=== PATIENT | male | born 1950 | race Caucasian/White ===

== ENCOUNTER 2025-08-30 08:43 | Day surgery (SDC) | payer OTHER ==
[~2025-08-30] VITALS: Ht 185.4 cm; Wt 72.1 kg
[~2025-08-30 08:43] MED LIST: AMOCLA875 PO; ASCO500 PO; ATOR20 PO; Balanced Salt Epinephrine Irrigation Solution 500 mL IR SCH; FISH1000 PO; GARLIQUE5000 MCG PO; INDAPAMIDE; K-Dur10 MEQ PO; LOSHYD PO; MULVITMINF PO; Moxifloxacin HCL 0.5 MG/0.1 ML 0.4MLSYR RIGHTEYE SCH; NIAC500 PO; NS 500 ML IV ONE; Ondansetron 4 MG SoluTab MM PRN; PHENYLEPHRINE\\TROPICAMIDE\\TETRACAINE OPHTHALMIC DILATING SOLN RIGHTEYE PRN; POTA10T PO; PROP10 PO; Povidone-Iodine 450 DROP/30 ML Solution ONE; Povidone-Iodine 450 DROP/30 ML Solution RIGHTEYE SCH; Tetracaine HCl/Pf 0.5% Opth Soln 4 ml ONE; VALS80 PO; diazePAM 5 MG,diazePAM 2 MG PO SCH
[2025-08-30] MEDS ORDERED: AMLODIPINE BESY10 MG PO (09:13)
[2025-08-30] MEDS ORDERED: IRON18 M1 PO (09:14)
--- NOTE | 2025-08-30 09:17 | NUR ---
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
[2025-08-30] MEDS ORDERED: NS 1,000 ML IV ONE (09:24)
[2025-08-30] MEDS ORDERED: Tetracaine HCl 0.5% Opth Soln 15 ml RIGHTEYE ONE (09:43)
[2025-08-30 10:22] VITALS: BP 141/70
== END 2025-08-30 10:18 | disposition home or self-care (01) ==
LOC: ORSCSDS 08:43
PROVIDERS: Student in an Organized Health Care Education/Training Program
PROC: 08RJ3JZ Replacement of Right Lens with Synthetic Substitute, Percutaneous Approach (ICD-10-PCS; principal; 2025-08-30 10:00)
DX: H25.813 Combined forms of age-related cataract, bilateral (principal); I10 Essential (primary) hypertension; Z79.899 Other long term (current) drug therapy
CPT/HCPCS: J7040; V2632

== ENCOUNTER 2025-09-06 08:30 | Day surgery (SDC) | payer OTHER ==
[~2025-09-06] VITALS: Ht 185.4 cm; Wt 74.1 kg
[~2025-09-06 08:30] MED LIST changes: +AMLODIPINE BESY10 MG PO; +IRON18 M1 PO; +Moxifloxacin HCL 0.5 MG/0.1 ML 0.4MLSYR LEFTEYE SCH; -Moxifloxacin HCL 0.5 MG/0.1 ML 0.4MLSYR RIGHTEYE SCH; +PHENYLEPHRINE\\TROPICAMIDE\\TETRACAINE OPHTHALMIC DILATING SOLN LEFTEYE PRN; -PHENYLEPHRINE\\TROPICAMIDE\\TETRACAINE OPHTHALMIC DILATING SOLN RIGHTEYE PRN; +Povidone-Iodine 450 DROP/30 ML Solution LEFTEYE SCH; -Povidone-Iodine 450 DROP/30 ML Solution RIGHTEYE SCH; -diazePAM 5 MG,diazePAM 2 MG PO SCH
[2025-09-06] MEDS ORDERED: NS 500 ML IV ONE (09:07)
[2025-09-06] MEDS ORDERED: Tetracaine HCl 0.5% Opth Soln 15 ml LEFTEYE ONE (09:33)
[2025-09-06 10:14] VITALS: BP 170/77
== END 2025-09-06 10:09 | disposition home or self-care (01) ==
LOC: ORSCSDS 08:30
PROVIDERS: Student in an Organized Health Care Education/Training Program
PROC: 08RK3JZ Replacement of Left Lens with Synthetic Substitute, Percutaneous Approach (ICD-10-PCS; principal; 2025-09-06 10:00)
DX: H25.812 Combined forms of age-related cataract, left eye (principal); Z96.1 Presence of intraocular lens; I10 Essential (primary) hypertension; F88 Other disorders of psychological development; Z79.899 Other long term (current) drug therapy
CPT/HCPCS: J7040; V2632